=== PATIENT | female | born 1965 | race Caucasian/White ===

== ENCOUNTER 2019-01-17 08:27 | Emergency (ER) | payer OTHER ==
[2019-01-17] MEDS ORDERED: SODIUM CHLORIDE 0.9% 500 ML 500 ML IV ONE (09:01)
--- NOTE | 2019-01-17 09:03 | ED ---
General Adult HPI - General Chief complaint: Recheck/Abnormal Lab/Rx Stated complaint: fall, facial injury Time Seen by Provider: 01/17/19 08:38 Source: patient, RN notes reviewed, old records reviewed Mode of arrival: ambulatory Limitations: no limitations - History of Present Illness Initial comments: 53-year-old female presenting for evaluation of headache, and elevated blood pressure. Patient states she had a fall approximately 4 days ago with head trauma. She was evaluated at outside hospital and receive CT imaging of the brain which she reports as normal. She states she's had a persistent frontal headache, feels somewhat confused and foggy. She also complains of elevated blood pressure which was significantly elevated at the time of evaluation in outside emergency department yesterday at 175 systolic. She states she has no history of hypertension. She is not on any blood thinners. She also reports intermittent chest pain. She has some nausea with no significant vomiting. She states she's had some blurry vision. - Related Data Home Medications Medication Instructions Recorded Confirmed Ergocalciferol [Vitamin D2] 50,000 unit PO FR 01/17/19 01/17/19 Ibuprofen [Motrin Ib] 600 - 800 mg PO Q6H PRN 01/17/19 01/17/19 Venlafaxine HCl [Effexor XR] 225 mg PO HS 01/17/19 01/17/19 rOPINIRole HCL [Requip] 0.5 mg PO HS 01/17/19 01/17/19 Allergies Allergy/AdvReac Type Severity Reaction Status Date / Time levofloxacin [From Levaquin] Allergy Unknown Verified 01/17/19 09:02 Review of Systems ROS Statement: Those systems with pertinent positive or pertinent negative responses have been documented in the HPI. ROS Other: All systems not noted in ROS Statement are negative. Past Medical History Past Medical History: Sleep Apnea/CPAP/BIPAP Additional Past Medical History / Comment(s): RESTLESS LEG SYNDROME, SLEEP APNEA History of Any Multi-Drug Resistant Organisms: None Reported Past Surgical History: Section, Hernia Repair, Hysterectomy, Tonsillectomy Past Psychological History: No Psychological Hx Reported Smoking Status: Never smoker Past Alcohol Use History: None Reported Past Drug Use History: None Reported General Exam Limitations: no limitations General appearance: alert, in no apparent distress Head exam: Present: normocephalic. Absent: atraumatic ((To ecchymosis) Eye exam: Present: normal appearance, PERRL, EOMI ENT exam: Present: normal exam Neck exam: Present: normal inspection. Absent: tenderness, meningismus Respiratory exam: Present: normal lung sounds bilaterally. Absent: respiratory distress, wheezes Cardiovascular Exam: Present: regular rate, normal rhythm GI/Abdominal exam: Present: soft. Absent: distended, tenderness Extremities exam: Present: normal inspection, normal capillary refill. Absent: pedal edema Neurological exam: Present: alert, oriented X3, CN II-XII intact, normal gait. Absent: motor sensory deficit Psychiatric exam: Present: normal affect, normal mood Skin exam: Present: warm, dry, intact. Absent: cyanosis, diaphoretic Course Vital Signs 01/17/19 08:30 Temperature 97.8 F Pulse Rate 70 Respiratory 16 Rate Blood Pressure 159/98 O2 Sat by Pulse 100 Oximetry EKG Findings - EKG Comments: EKG Findings:: Normal sinus rhythm, rate is 62, [place] interval 138, QRS duration 92, QTC [address] segment changes. Medical Decision Making - Medical Decision Making 53-year-old female presenting with several complaints, headache, status post fall is her main complaint. She did report some intermittent chest pain. No significant chest pain at the time my evaluation. CT was repeated, this showed age-related chronic ischemia, no acute intracranial hemorrhage or mass effect. Chest x-ray obtained, negative for acute Lon pulmonary disease. Patient has normal CBC, CMP does reveal hypoglycemia with blood sugar of 60. She is able to eat in the emergency department. Troponin negative. EKG nonischemic. Patient will monitor blood pressure at home, create a log. She will establish primary care follow-up regarding her elevated blood pressure. She will return with worsening or changing symptoms. - Lab Data Result diagrams: 01/17/19 09:12 01/17/19 09:12 Lab Results 01/17/19 01/17/19 01/17/19 Range/Units 09:12 09:12 09:12 WBC 7.6 (3.8-10.6) k/uL RBC 4.22 (3.80-5.40) m/uL Hgb 12.6 (11.4-16.0) gm/dL Hct 37.0 (34.0-46.0) % MCV 87.7 (80.0-100.0) fL MCH 29.8 (25.0-35.0) pg MCHC 33.9 (31.0-37.0) g/dL RDW 14.1 (11.5-15.5) % Plt Count 309 (150-450) k/uL Neutrophils % (Manual) 58 % Lymphocytes % (Manual) 20 % Monocytes % (Manual) 2 % Eosinophils % (Manual) 20 % Neutrophils # (Manual) 4.41 (1.3-7.7) k/uL Lymphocytes # (Manual) 1.52 (1.0-4.8) k/uL Monocytes # (Manual) 0.15 (0-1.0) k/uL Eosinophils # (Manual) 1.52 H (0-0.7) k/uL Nucleated RBCs 0 (0-0) /100 WBC Manual Slide Review Performed RBC Morphology Normal PT 10.8 (9.0-12.0) sec INR 1.0 (<1.2) APTT 20.3 L (22.0-30.0) sec Sodium 140 (137-145) mmol/L Potassium 3.6 (3.5-5.1) mmol/L Chloride 109 H (98-107) mmol/L Carbon Dioxide 25 (22-30) mmol/L Anion Gap 6 mmol/L BUN 12 (7-17) mg/dL Creatinine 0.54 (0.52-1.04) mg/dL Est GFR (CKD-EPI)AfAm >90 (>60 ml/min/1.73 sqM) Est GFR (CKD-EPI)NonAf >90 (>60 ml/min/1.73 sqM) Glucose 60 L (74-99) mg/dL Calcium 8.7 (8.4-10.2) mg/dL Magnesium 1.7 (1.6-2.3) mg/dL Total Bilirubin 0.3 (0.2-1.3) mg/dL AST 31 (14-36) U/L ALT 31 (9-52) U/L Alkaline Phosphatase 70 (38-126) U/L Troponin I (0.000-0.034) ng/mL Total Protein 5.8 L (6.3-8.2) g/dL Albumin 3.5 (3.5-5.0) g/dL 01/17/19 Range/Units 09:12 WBC (3.8-10.6) k/uL RBC (3.80-5.40) m/uL Hgb (11.4-16.0) gm/dL Hct (34.0-46.0) % MCV (80.0-100.0) fL MCH (25.0-35.0) pg MCHC (31.0-37.0) g/dL RDW (11.5-15.5) % Plt Count (150-450) k/uL Neutrophils % (Manual) % Lymphocytes % (Manual) % Monocytes % (Manual) % Eosinophils % (Manual) % Neutrophils # (Manual) (1.3-7.7) k/uL Lymphocytes # (Manual) (1.0-4.8) k/uL Monocytes # (Manual) (0-1.0) k/uL Eosinophils # (Manual) (0-0.7) k/uL Nucleated RBCs (0-0) /100 WBC Manual Slide Review RBC Morphology PT (9.0-12.0) sec INR (<1.2) APTT (22.0-30.0) sec Sodium (137-145) mmol/L Potassium (3.5-5.1) mmol/L Chloride (98-107) mmol/L Carbon Dioxide (22-30) mmol/L Anion Gap mmol/L BUN (7-17) mg/dL Creatinine (0.52-1.04) mg/dL Est GFR (CKD-EPI)AfAm (>60 ml/min/1.73 sqM) Est GFR (CKD-EPI)NonAf (>60 ml/min/1.73 sqM) Glucose (74-99) mg/dL Calcium (8.4-10.2) mg/dL Magnesium (1.6-2.3) mg/dL Total Bilirubin (0.2-1.3) mg/dL AST (14-36) U/L ALT (9-52) U/L Alkaline Phosphatase (38-126) U/L Troponin I <0.012 (0.000-0.034) ng/mL Total Protein (6.3-8.2) g/dL Albumin (3.5-5.0) g/dL Disposition Clinical Impression: Hypertension, Concussion Disposition: HOME SELF-CARE Condition: Good Instructions (If sedation given, give patient instructions): Hypertension (ED), Concussion (ED) Is patient prescribed a controlled substance at d/c from ED?: No Referrals: Giuseppe Taylor MD [Primary Care Provider] - 1-2 days Ace Aleman MD [STAFF PHYSICIAN] - 1-2 days Kiya Perales MD [STAFF PHYSICIAN] - 1-2 days Aj Swartz MD [STAFF PHYSICIAN] - 1-2 days Time of Disposition: 10:31
[2019-01-17 09:21] LABS: HGB 12.6 gm/dL (11.4-16.0); MCH 29.8 pg (25.0-35.0); MCHC 33.9 g/dL (31.0-37.0); MCV 87.7 fL (80.0-100.0); Mean Platelet Volume 8.3; Platelet Count 309 k/uL (150-450); RBC 4.22 m/uL (3.80-5.40); RDW 14.1 % (11.5-15.5); WBC 7.6 k/uL (3.8-10.6)
[2019-01-17 09:36] LABS: ALT 31 U/L (9-52); AST 31 U/L (14-36); Albumin 3.5 g/dL (3.5-5.0); Alkaline Phosphatase 70 U/L (38-126); Anion Gap 6 mmol/L; Blood Urea Nitrogen 12 mg/dL (7-17); Calcium 8.7 mg/dL (8.4-10.2); Carbon Dioxide 25 mmol/L (22-30); Chloride 109 mmol/L (98-107); Glucose 60 mg/dL (74-99); Magnesium 1.7 mg/dL (1.6-2.3); Potassium 3.6 mmol/L (3.5-5.1); Sodium 140 mmol/L (137-145); Total Bilirubin 0.3 mg/dL (0.2-1.3); Total Protein 5.8 g/dL (6.3-8.2)
--- NOTE | 2019-01-17 09:40 | CT ---
EXAMINATION TYPE: CT brain wo con DATE OF EXAM: 01/17/2019 HISTORY: Fall, bruise to left forehead and headache. CT DLP: 1082.4 mGycm. Automated Exposure Control for Dose Reduction was Utilized. TECHNIQUE: CT scan of the head is performed without contrast. COMPARISON: None. FINDINGS: There is no acute intracranial hemorrhage or midline shift identified. There is diffuse v entricular and sulcal prominence consistent with diffuse age-related cerebral atrophy. There is low- attenuation in the periventricular white matter consistent with chronic small vessel ischemic change. The globes are intact and the visualized sinuses are clear. Intraconal fat is preserved bilaterall y. The calvarium is intact. IMPRESSION: No acute intracranial hemorrhage or midline shift. There is mild diffuse age-related ce rebral atrophy and chronic small vessel ischemic change noted.
[2019-01-17 09:49] LABS: Eosinophils # (M) 1.52 k/uL (0-0.7); Lymphocytes # (M) 1.52 k/uL (1.0-4.8); Monocytes # (M) 0.15 k/uL (0-1.0); Neutrophils # (M) 4.41 k/uL (1.3-7.7); Neutrophils % (M) 58 %; Nucleated Red Blood Cells 0 /100 WBC (0-0); Total Cells Counted 100
[2019-01-17 09:58] LABS: Prothrombin Time 10.8 sec (9.0-12.0)
--- NOTE | 2019-01-17 09:59 | XR ---
EXAMINATION TYPE: XR chest 2V DATE OF EXAM: 01/17/2019 COMPARISON: Chest x-ray February 05, 2013. HISTORY: History of hypertension presents with chest pain. TECHNIQUE: Frontal and lateral views of the chest are obtained. FINDINGS: Overlying EKG leads are present. There is no focal air space opacity, pleural effusion, or pneumothorax seen. The cardiac silhouette size is within normal limits. The osseous structures ar e intact. IMPRESSION: No acute cardiopulmonary process on current study.
[2019-01-17 10:07] LABS: Partial Thromboplastin Time 20.3 sec (22.0-30.0)
[2019-01-17 11:14] VITALS: BP 139/92; PULSE 71; RESP 18
[2019-01-17 11:24] VITALS: TEMP 98
== END 2019-01-17 11:22 | disposition home or self-care (01) ==
LOC: EC 08:27
DX: S06.0X0A Concussion without loss of consciousness, initial encounter (principal); I10 Essential (primary) hypertension; R07.9 Chest pain, unspecified; E16.2 Hypoglycemia, unspecified; G25.81 Restless legs syndrome; G47.30 Sleep apnea, unspecified; Z99.89 Dependence on other enabling machines and devices; Z79.899 Other long term (current) drug therapy; Z88.1 Allergy status to other antibiotic agents; W19.XXXA Unspecified fall, initial encounter; W22.8XXA Striking against or struck by other objects, initial encounter
CPT/HCPCS: 36415; 70450; 71046; 80053; 83735; 84484; 85025; 85610; 85730; 93005; 96360; 99284

== ENCOUNTER → 2020-09-25 | Outpatient (CLI) | payer OTHER ==
--- NOTE | 2020-09-25 09:01 | US ---
EXAMINATION TYPE: US abdomen complete DATE OF EXAM: 09/25/2020 COMPARISON: NONE CLINICAL HISTORY: R10.13 epigastric pain. over 1 week ago, patient had severe abd pain with diarrhea that contained blood EXAM MEASUREMENTS: Liver Length: 12.6 cm Gallbladder Wall: 0.2 cm CBD: 0.4 cm Spleen: 8.8 cm Right Kidney: 9.6 x 4.6 x 4.5 cm Left Kidney: 9.8 x 4.5 x 4.2 cm Pancreas: wnl Liver: wnl Gallbladder: wnl Evidence for sonographic Chatterjee's sign: no CBD: wnl Spleen: wnl Right Kidney: wnl Left Kidney: wnl Upper IVC: wnl Abd Aorta: wnl The visualized liver is homogenous. The intrahepatic portion of the IVC and visualized abdominal aor ta are within normal limits. There is no evidence of shadowing mobile cholelithiasis. Common bile d uct is unremarkable. The visualized portions of the pancreas are homogenous. The spleen is unremark able. Kidneys are symmetric and free of hydronephrosis. No renal lesions are seen on images saved. IMPRESSION: Unremarkable study.
== END | disposition home or self-care (01) ==
LOC: RADUSWWP 07:45
PROVIDERS: ATTEND Internal Medicine
DX: R10.13 Epigastric pain (principal)
CPT/HCPCS: 76700

== ENCOUNTER 2020-10-09 07:44 | Day surgery (SDC) | payer OTHER ==
[2020-10-06 11:28] VITALS: BMI 24.1
[~2020-10-09 07:44] MED LIST: LACTATED RINGERS 1,000 ML IV SCH; LIDOCAINE 1% (10MG/ML) FOR IV START INTRADERMA PRN
[2020-10-09 07:58] VITALS: TEMP 97.4
[2020-10-09] MEDS ORDERED: PROPOFOL 10 MG/ML 20 ML VIAL IV ONE (08:35)
[2020-10-09] MEDS ORDERED: LIDOCAINE 1% INJ 10MG/ML (20 ML MDV) ONE (08:35)
--- NOTE | 2020-10-09 08:56 | P.PCN ---
Date of Procedure: 10/09/20 Description of Procedure: BRIEF HISTORY: Patient is a 55-year-old female who presents for outpatient EGD for evaluation of gastrointestinal hemorrhage. Patient reports episodes of nausea and vomiting and blood per rectum. No further episodes. She reports intermittent diarrhea as well as constipation. She is also having some abdominal pain. She did have a colonoscopy earlier this year. PROCEDURE PERFORMED: Esophagogastroduodenoscopy with biopsy. PREOPERATIVE DIAGNOSIS: Gastrointestinal hemorrhage, abdominal pain. ESTIMATED BLOOD LOSS: Minimal. IV sedation per anesthesia. PROCEDURE: After informed consent was obtained, the patient was brought into the endoscopy unit. IV sedation was administered by Anesthesia under continuous monitoring. Initially the Olympus GIF-190 video endoscope was inserted into the mouth. Esophagus intubated without any difficulty. It was gradually advanced into the stomach and duodenum and carefully examined. The bulb and the second part of the duodenum appeared normal, with biopsies taken to rule out celiac sprue. The scope at this time was withdrawn to the stomach, adequately insufflated with air, and upon careful examination, mucosa of the antrum, body, cardia and the fundus appeared normal, except for mild scattered erythema in the antrum and body as well as some superficial erosions suggestive of moderate gastritis with biopsies taken. The scope was then withdrawn into the esophagus. The GE junction was located at 37 cm from the incisors, with biopsies taken. The esophagus appeared normal. There were no erosions or ulcerations seen and the patient tolerated the procedure well. IMPRESSION: 1. Moderate gastritis. 2. Biopsies of the duodenum, antrum body and GE junction. RECOMMENDATIONS: The findings of this examination were discussed with the patient. Okay to resume diet. Okay to resume medications. Patient will be provided with a prescription for omeprazole daily for 8 weeks. Follow-up in the GI clinic as scheduled.
[2020-10-09 09:20] VITALS: BP 129/81; PULSE 61; RESP 18
== END 2020-10-09 09:33 | disposition home or self-care (01) ==
LOC: ORWHC2ENDO 07:44
PROVIDERS: ATTEND Internal Medicine
DX: K29.50 Unspecified chronic gastritis without bleeding (principal); K20.90 Esophagitis, unspecified without bleeding; G47.33 Obstructive sleep apnea (adult) (pediatric); G25.81 Restless legs syndrome; J45.909 Unspecified asthma, uncomplicated; M79.7 Fibromyalgia; Z88.1 Allergy status to other antibiotic agents; Z86.19 Personal history of other infectious and parasitic diseases; Z79.899 Other long term (current) drug therapy; Z98.891 History of uterine scar from previous surgery; Z98.890 Other specified postprocedural states; Z90.89 Acquired absence of other organs
CPT/HCPCS: 43239; J2001; J2704; 88305

== ENCOUNTER → 2023-07-29 | Outpatient (CLI) | payer OTHER ==
[2023-07-29 11:13] LABS: Basophils % (A) 1 %; Eosinophils # (A) 0.4 k/uL (0-0.7); Eosinophils % (A) 9 %; HCT 39.9 % (34.0-46.0); HGB 13.4 gm/dL (11.4-16.0); Lymphocytes # (A) 1.4 k/uL (1.0-4.8); Lymphocytes % (A) 29 %; MCH 29.5 pg (25.0-35.0); MCHC 33.4 g/dL (31.0-37.0); MCV 88.2 fL (80.0-100.0); Mean Platelet Volume 9.4; Monocytes # (A) 0.3 k/uL (0-1.0); Monocytes % (A) 7 %; Neutrophils # (A) 2.5 k/uL (1.3-7.7); Neutrophils % (A) 52 %; Platelet Count 302 k/uL (150-450); RBC 4.53 m/uL (3.80-5.40); RDW 13.7 % (11.5-15.5); WBC 4.8 k/uL (3.8-10.6)
[2023-07-29 11:18] LABS: Total Eosinophil Count 421 #EOS/uL (150-300)
[2023-07-30 02:57] LABS: Alternaria alternata IgE <0.10 kU/L; Aspergillus fumagatus IgE <0.10 kU/L; Birch IgE <0.10 kU/L; Cat Epith & Dander IgE <0.10 kU/L; Cladosporian herbarum IgE <0.10 kU/L; Cockroach IgE <0.10 kU/L; Dermato. farinae IgE <0.10 kU/L; Dog Dander IgE <0.10 kU/L; Elm IgE <0.10 kU/L; Maple (Box Elder) IgE <0.10 kU/L; Oak IgE <0.10 kU/L; Ragweed,Common IgE 0.32 kU/L
== END | disposition home or self-care (01) ==
LOC: LABWHC1 10:06
PROVIDERS: ATTEND Internal Medicine
DX: J45.50 Severe persistent asthma, uncomplicated (principal)
CPT/HCPCS: 36415; 82785; 85008; 85025; 86003

== ENCOUNTER → 2023-08-11 | Outpatient (CLI) | payer OTHER ==
--- NOTE | 2023-08-11 22:27 | CT ---
EXAMINATION TYPE: CT chest wo con DATE OF EXAM: 08/11/2023 COMPARISON: None HISTORY: ILD CT DLP: 1527 mGycm, Automated exposure control for dose reduction was used. CONTRAST: None TECHNIQUE: Axial images were obtained at 1 mm thick sections at 10 mm intervals. This will limit po rtions of the examination which may not be visualized within the [id number]. Images were obtained in the prone and supine views. FINDINGS: Portion of the thyroid visualized is normal. No suspicious lung nodules or focal infiltrat es are present. No significant interval change between prone and supine views are evident. No suspici ous changes of pulmonary fibrosis. No bronchiectasis or significant peribronchial thickening. No enlarged mediastinal or hilar adenopathy is evident. The ascending aorta diameter at the level o f the main pulmonary artery is 4.4 cm. The main pulmonary artery diameter at the bifurcation is 2.[address] sections are obtained through the upper abdomen. Abdomen is essentially unremarkable. IMPRESSION: 1. No suspicious lung findings high-resolution CT chest. 2. Aneurysmal dilatation of the ascending thoracic aorta with an AP diameter 4.4 cm.
== END | disposition home or self-care (01) ==
LOC: RADCTMAIN 13:40
PROVIDERS: ATTEND Internal Medicine
DX: J84.9 Interstitial pulmonary disease, unspecified (principal); I71.21 Aneurysm of the ascending aorta, without rupture
CPT/HCPCS: 71250

== ENCOUNTER → 2024-06-05 | Outpatient (CLI) | payer OTHER ==
--- NOTE | 2024-06-05 10:54 | CT ---
EXAMINATION TYPE: CT angio chest DATE OF EXAM: 06/05/2024 10:34 AM COMPARISON: 08/11/2023 HISTORY: r/o pE CT DLP: 570 mGycm Automated exposure control for dose reduction was used. CONTRAST: CTA scan of the thorax is performed with IV Contrast, patient injected with 60 mL of Isovue 370, pulm onary embolism protocol. . FINDINGS: Erect airway: There is abnormal soft tissue in the posterior margin of the trachea possibly related to retained secretion correlate clinically. LUNGS: Fairly diffuse bilateral groundglass changes. Calcified granuloma. No sizable pleural effusion . No pneumothorax. MEDIASTINUM: Aneurysmal dilation of the ascending aorta measuring 4.6 cm the heart is enlarged. Trace pericardial fluid. No pathologic mediastinal or hilar adenopathy. Suboptimal enhancement of the pulm onary arteries demonstrates no diagnostic evidence of central PE. Third order and distal branches rinaldi ited and pulmonary embolism cannot be excluded in this distribution.. OTHER: Hypertrophic and degenerative changes of the spine. Tiny hypodensities in the liver too small to characterize but statistically most likely related to simple cyst. Small hiatal hernia. IMPRESSION: 1. Limited assessment for pulmonary embolism demonstrates no central PE. Third order and distal branc hes are Limited as discussed above. 2. Diffuse bilateral groundglass changes correlate for infectious pneumonitis favored over venous con gestion. 3. There is a 4.6 cm ascending aortic aneurysm.
== END | disposition home or self-care (01) ==
LOC: RADCTMAIN 09:32
PROVIDERS: ATTEND Internal Medicine
DX: R06.02 Shortness of breath
CPT/HCPCS: 71275